=== PATIENT | female | born 1970 | race Caucasian/White ===

== ENCOUNTER 2023-11-10 13:18 | Outpatient (AMB) | payer OTHER, SELFPAY ==
[2023-11-10 13:31] VITALS: BP 118/70; BMI 18.2
--- NOTE | 2023-11-10 13:31 | A.OFFVIS_ITS ---
Vital Signs 11/10/23 13:31 Height 5 ft 7 in Weight 116 lb BMI 18.2 BP 118/70 Intake Visit Reasons: New Patient Annual Judicial Clerk Required: No Information Interpreted: clinical only Mortgage Closing Clerk: Mortgage Closing Clerk Present Allergies No Known Allergies Allergy (Verified 11/10/23 13:31) Medication List - Last Reconciled 11/10/23 by Ena Tobar CNM cholecalciferol (vitamin D3) 10 mcg PO DAILY citalopram (Celexa) 20 mg PO DAILY cyanocobalamin (vitamin B-12) 2,500 mcg PO DAILY levonorgestrel (Mirena) intrauterine Is last menstrual period known: No Post menopausal: Yes PFSH Medical History (Updated 11/10/23 @ 14:25 by Ena Tobar CNM) Anxiety Surgical History (Updated 11/10/23 @ 13:37 by Terry Galeana CMA) S/P breast augmentation History of thyroglossal duct cyst removal Family History (Updated 11/10/23 @ 13:41 by Terry Galeana CMA) Father High cholesterol Colon cancer Maternal Grandfather Colon cancer Paternal Grandfather Colon cancer Mother Irregular heart beat Social History (Updated 11/10/23 @ 13:42 by Terry Galeana CMA) Alcohol intake: never Patient Tobacco Use Status: Never used Tobacco Female Reproductive History Menstrual Age of Menarche: 12 Duration of menses: 3-5 days control method: progestin IUCD Total pregnancies: 3 Full term: 3 Date of last pap smear: 09/10/21 (negative) History of abnormal pap smear: Yes (1992 ,2013 abn.) Date of Mammogram: 07/13/22 (negative) History of abnormal mammogram: No Physical Exam Vital Signs: Last Vital Signs BP 118/70 11/10/23 13:31 BMI result Body Mass Index 18.2 Const General: healthy appearing, comfortable, no acute distress, well developed and alert Nutritional Appearance: average body habitus Orientation/consciousness: patient oriented x3 Limitations: no limitations HEENT Head: Yes normocephalic Neck Neck: Yes normal visual inspection Thyroid: Thyroid normal Chest Other: has bilateral breast implants Chest palpation & inspection: normal inspection of the chest Breast/axilla inspection: normal inspection of the breasts and normal inspection of the axillae Breast/axilla palpation: normal palpation of the breasts and normal palpation of the axillae Resp Effort & Inspection: normal respiratory effort GI Inspection: Yes normal to inspection, No Abdominal wall edema and No distended Palpation (GI): Soft to palpation and nontender Other: Vagina pink moist some atrophic changes cervix multiparous Mirena string visible slightly yellow tinged mucus appears within uterus small midposition nontender adnexa nontender good tone. General: Yes bladder normal to palpation External Female Exam: normal external appearance and normal appearance of the urethra Speculum Exam - Vagina: normal appearance of the vagina, normal palpation and normal vaginal discharge Speculum Exam - Cervix: normal appearance of the cervix, normal palpation and nontender Bimanual exam- vagina & uterus: normal bimanual exam, normal palpation, uterine size normal, bladder normal to palpation, consistency normal, normal palpation, uterine mobility normal, uterine shape normal, No Cervical tenderness present, non-tender and no cervical motion tenderness Bimanual Exam- Adnexa, other: normal adnexae, no masses, normal and No adnexal tenderness Neuro General: patient oriented x3 Assessment & Plan Assessment & Plan (1) Well woman exam with routine gynecological exam: Code(s): Z01.419 - Encounter for gynecological examination (general) (routine) without abnormal findings Category: Medical (2) Hx of abnormal cervical Pap smear: Code(s): Z87.42 - Personal history of other diseases of the female genital tract Category: Medical (3) Perimenopause: Code(s): N95.1 - Menopausal and female climacteric states Category: Medical Plan -----Discussed in this visit the following: healthy balanced diet, regular and consistent exercise, getting recommended health screens, doing the best she can for her particular health concerns, kegel exercises, pap smear screening and followup recommendations, mammography screening and SBE, normal changes in cycles in her life stage--- . Discussed her questions around when to remove the Mirena and the length of time it is the used for now have both contraception and for management of bleeding issues. She had it placed for contraception and liked it and had it replaced 7 years ago about. She is doing her own research wondering about benefits of HRT she said that she had testing done last year in [place] that said that she has now in the menopausal range so she has not needing it for control at this point now but does want to talk to somebody about the considerations of HRT for protection of neuro logical functions. She has a runner and mostly vegan and gets lots calcium through her diet and with dark green leafy vegetables. I reviewed that I am not comfortable at this point time prescribing HRT and do not consider myself well-versed in enough in the pros and cons and would defer to other experts in this field she may wished to make appointment with fire information officer of choice to discuss this further. She uses sunscreen very carefully and she is getting her screens for colorectal cancer because of her family history I am ordering a mammogram for her to continue her yearly mammograms. Pap smear was done testing offered during the visit for gonorrhea chlamydia trichomoniasis Gardnerella and Jane. She has no special concerns to warrant blood testing for STIs and would reconsider if something arose. Orders: Orders MM tomosynthesis screening BI Today N95.1 - Menopausal and female climacteric states, Z01.419 - Encounter for gynecological examination (general) (routine) without abnormal findings, Z12.31 - Encounter for screening mammogram for malignant neoplasm of breast, Z87.42 - Personal history of other diseases of the female genital tract Coding Level of Care Code New Pt Prev Care 40-64y(13378) Diagnoses Well woman exam with routine gynecological exam Z01.419 Hx of abnormal cervical Pap smear Z87.42 Perimenopause N95.1
== END 2023-11-10 14:30 | disposition home or self-care (01) ==
PROVIDERS: PCP Internal Medicine; Visit Provider Advanced Practice Midwife
DX: Z01.419 Encounter for gynecological examination (general) (routine) without abnormal findings (principal); Z87.42 Personal history of other diseases of the female genital tract; N95.1 Menopausal and female climacteric states
CPT/HCPCS: 99386

== ENCOUNTER 2023-11-10 13:18 | Outpatient (REF) | payer OTHER, SELFPAY ==
[2023-11-11 02:40] LABS: CT PCR NOT DETECTED (Not Detect.); NG PCR NOT DETECTED (Not Detect.)
[2023-11-11 09:00] LABS: Bacterial Vaginosis PCR NEGATIVE (Negative); Candida Group PCR NOT DETECTED (Not Detect); Candida glab krusei PCR NOT DETECTED (Not Detect); Trichomonas vaginalis PCR NOT DETECTED (Not Detect)
[2023-11-18 07:59] LABS: HPV mRNA E6/E7 rflx Not Detected (Not Detected)
== END 2023-11-10 13:19 | disposition home or self-care (01) ==
LOC: HO.LAB 13:18
PROVIDERS: PCP Internal Medicine; Visit Provider Advanced Practice Midwife
DX: Z01.419 Encounter for gynecological examination (general) (routine) without abnormal findings (principal); N95.1 Menopausal and female climacteric states; Z87.42 Personal history of other diseases of the female genital tract; Z11.3 Encounter for screening for infections with a predominantly sexual mode of transmission
CPT/HCPCS: 0352U; 0353U; 87624; 88142; 99386

== ENCOUNTER 2023-12-02 09:05 | Outpatient (REF) | payer OTHER, SELFPAY ==
--- NOTE | ~2023-12-02 | MM_ITS ---
EXAMINATION: MM SCREENING DIGITAL BREAST TOMOSYNTHESIS, BILATERAL CLINICAL INFORMATION: Screening. Asymptomatic. COMPARISON: Mammography: This study is compared with prior exams dating back to TECHNIQUE: Digital breast tomosynthesis is performed in both the craniocaudal and mediolateral oblique views along with computer-aided detection (CAD). Synthesized 2D images are generated from the tomosynthesis. FINDINGS: There are scattered areas of fibroglandular density (ACR BI-RADS breast composition Category b). There are bilateral, mammographically intact, saline breast implants. There are no significant masses, abnormal calcifications, or other abnormalities. MM/MM tomosynthesis screening BI IMPRESSION: No mammographic evidence of malignancy. ASSESSMENT: BI-RADS BI-RADS 1 - Negative RECOMMENDATION: Routine annual mammography screening. 1 year F/U This examination should not preclude the clinical evaluation of a suspicious palpable abnormality. This patient's information was entered into a reminder system with a target due date for their next mammogram.
== END 2023-12-02 09:06 | disposition home or self-care (01) ==
LOC: HO.MAMMO 09:05
PROVIDERS: PCP Internal Medicine; Visit Provider Advanced Practice Midwife
DX: Z12.31 Encounter for screening mammogram for malignant neoplasm of breast (principal)
CPT/HCPCS: 77063; 77067

== ENCOUNTER → 2023-12-02 09:30 | Outpatient (BNV) | payer OTHER, SELFPAY | PROVIDERS: PCP Internal Medicine; Visit Provider Radiology Diagnostic Radiology | DX: Z12.31 Encounter for screening mammogram for malignant neoplasm of breast (principal) | CPT/HCPCS: 77063; 77067 ==

== ENCOUNTER 2023-12-23 10:00 | Outpatient (AMB) | payer OTHER, SELFPAY ==
--- NOTE | 2023-12-23 10:10 | A.OFFVIS_ITS ---
Vital Signs 12/23/23 10:11 Height 5 ft 7 in Weight 115 lb BMI 18.0 BP 92/52 L Intake Visit Reasons: Hormone Allergies No Known Allergies Allergy (Verified 12/23/23 10:14) HPI Comments Details: Presenting to discuss Mirena IUD removal and menopausal hormone therapy benefits and risks. The patient had FSH /LH 2 years ago at her OBGYN in [place] were in the menopausal range, was using Mirena IUD for contraception. The patient has no hot flashes or any other concerns [facility] Medical History Anxiety Surgical History S/P breast augmentation History of thyroglossal duct cyst removal Family History Father High cholesterol Colon cancer Maternal Grandfather Colon cancer Paternal Grandfather Colon cancer Mother Irregular heart beat Social History (Updated 11/10/23 @ 13:42 by Terry Galeana [facility]) Household Members: Significant Other Household Members Other:: daughter Housing: House Alcohol intake: never Patient Tobacco Use Status: Never used Tobacco Current occupational status: employed Current occupation: Teacher Sexual orientation: Straight/Heterosexual Gender identity: Female Female Reproductive History Menstrual Age of Menarche: 12 control method: progestin IUCD Total pregnancies: 3 Full term: 3 Number of Living Children: 3 Date of Mammogram: 12/02/23 Review of Systems Const All systems reviewed & are unremarkable except as noted in HPI and below Physical Exam Vital Signs: BMI result Body Mass Index 18.0 General: Yes no CVA tenderness External Female Exam: normal external appearance and normal appearance of the urethra Speculum Exam - Vagina: normal appearance of the vagina, normal palpation, no lesions and no masses Speculum Exam - Cervix: normal appearance of the cervix, normal palpation, no lesions, no masses, nontender and Other cervical findings present (IUD string in place) Bimanual exam- vagina & uterus: normal bimanual exam, normal palpation, uterine size normal, normal palpation, uterine shape normal, No Cervical tenderness present and non-tender Bimanual Exam- Adnexa, other: normal adnexae Back/Spine/Pelvis Back: no CVA tenderness Office Procedures IUD Insert/Removal Details Details: Counseling/Consent: After discussing with the patient the risks of the procedure including bleeding, infection, scar tissue formation, , possible injury to blood vessels or nerves, chronic arm pain, blood transfusion, and irregular unpredictable bleeding Alternative options were discussed with the patient including but not limited: Do nothing. The patient signed the consent and agreed with the plan; all questions answered. Urine test was done in the office and was negative Preop dx: Requesting IUD removal Op: IUD removal Post op dx: same EBL= 10 cc Procedure: The patient was put in the dorsal lithotomy position a speculum was inserted in the vagina the IUD thread identified. Using a Kim clamp the thread was grasped and the IUD pulled out with no complications. The patient tolerated the procedure well and was advised to use a different method for contraception. Discharge instructions: Instructions were given to the pt to call if temp>100.4, abdominal pain heavy vaginal bleeding, n/v occur. The patient verbalized understanding and all questions answered. This note was generated with a voice recognition program. Some errors may have been overlooked during the review of this note. Sometimes these errors may affect the content or meaning of a given sentence. [id number] Removal Procedure code (CPT) selection complete Assessment & Plan Assessment & Plan (1) Encounter for IUD removal: Code(s): Z30.432 - Encounter for removal of intrauterine contraceptive device Category: Medical Plan: Mirena IUD removed, see procedure note. Instructions given the patient call in case of vaginal bleeding. All questions answered, the patient verbalized understanding (2) Counseling for hormone replacement therapy: Code(s): Z71.89 - Other specified counseling Category: Medical Plan: Discussed with the patient menopausal combined hormonal therapy data in 1 between 50-59 years of age showing: The following risks: Increase in the risk of coronary heart disease, invasive breast cancer, stroke, PE, DVT And the following benefits: the data showed an decreased in the following: the risk of colorectal cancer, lung cancer, all fractures, hip fractures, all cause mortality and diabetes Also discussed with the patient data regarding menopausal hormone therapy showing no prevention of dementia and possible increase in few data and there is no clear recommendation indication towards prevention of dementia. All questions answered, the patient verbalized understanding Coding Level of Care Code Est Pt Level 3 (84664) Procedure Only Diagnoses Encounter for IUD removal Z30.432 Counseling for hormone replacement therapy Z71.89 CPT Codes Details - CPT: 02539-LLR Removal ([id number])
[2023-12-23 10:11] VITALS: BP 92/52; BMI 18.0
== END 2023-12-23 10:52 | disposition home or self-care (01) ==
LOC: HO.HWS 10:00
PROVIDERS: PCP Internal Medicine; Visit Provider Obstetrics & Gynecology
DX: Z30.432 Encounter for removal of intrauterine contraceptive device (principal); Z71.89 Other specified counseling
CPT/HCPCS: 58301; 99213

== ENCOUNTER → 2023-12-23 10:00 | Outpatient (BNVA) | payer OTHER, SELFPAY | PROVIDERS: PCP Internal Medicine; Visit Provider Obstetrics & Gynecology | DX: Z30.432 Encounter for removal of intrauterine contraceptive device (principal); Z71.89 Other specified counseling | CPT/HCPCS: 58301; 99212 ==

== ENCOUNTER 2024-02-04 13:46 | Outpatient (REF) | payer OTHER, SELFPAY | END 2024-02-04 13:47 | disposition home or self-care (01) | LOC: HO.SH 13:46 | PROVIDERS: Visit Provider Internal Medicine | DX: Z01.118 Encounter for examination of ears and hearing with other abnormal findings (principal); H93.293 Other abnormal auditory perceptions, bilateral | CPT/HCPCS: 92557 ==